=== PATIENT | male | born 2000 | race Caucasian/White ===

== ENCOUNTER 2023-06-02 15:48 | Emergency (ER) | payer MEDICAID, OTHER ==
[~2023-06-02] VITALS: Ht 182.9 cm; Wt 69.0 kg
[2023-06-02] MEDS ORDERED: KETOROLAC TROMETH 60MG/2ML VIAL IM ONE (16:00)
[2023-06-02] MEDS ORDERED: IBUP-1455 PO (16:43)
[2023-06-02] MEDS ORDERED: ACET500T58 PO (16:43)
[2023-06-02 16:51] VITALS: BP 107/67; PULSE 80; RESP 18; TEMP 98.7; O2SAT 100
== END 2023-06-02 16:52 | disposition home or self-care (01) ==
LOC: ER 15:48
DX: S16.1XXA Strain of muscle, fascia and tendon at neck level, initial encounter (principal); S29.012A Strain of muscle and tendon of back wall of thorax, initial encounter; M51.44 Schmorl's nodes, thoracic region; V69.49XA Driver of heavy transport vehicle injured in collision with other motor vehicles in traffic accident, initial encounter; Y93.89 Activity, other specified; Y92.488 Other paved roadways as the place of occurrence of the external cause; Y99.8 Other external cause status
CPT/HCPCS: 72040; 72070; 96372; 99284; J1885

== ENCOUNTER 2024-01-25 15:44 | Emergency (ER) | payer MEDICAID, OTHER ==
[~2024-01-25] VITALS: Ht 182.9 cm; Wt 63.0 kg
[~2024-01-25 15:44] MED LIST: ACET500T58 PO; IBUP-1455 PO
[2024-01-25 17:08] VITALS: BP 137/58; PULSE 100; RESP 18; O2SAT 99
[2024-01-25] MEDS: ACETAMINOPHEN 500 MG TAB PO ONE (17:28)
[2024-01-25] MEDS ORDERED: NAPR-746 PO (17:34)
[2024-01-25] MEDS ORDERED: AMOX500T86 PO (17:34)
[2024-01-25] MEDS: TETANUS-DIPTH-ACEL PERTUSSIS 0.5ML SYR Tdap IM ONE (17:59)
[2024-01-25 18:00] VITALS: TEMP 98.1
== END 2024-01-25 18:05 | disposition home or self-care (01) ==
LOC: ER 15:44
DX: S61.432A Puncture wound without foreign body of left hand, initial encounter (principal); S61.431A Puncture wound without foreign body of right hand, initial encounter; W54.0XXA Bitten by dog, initial encounter; Y93.89 Activity, other specified; Y92.89 Other specified places as the place of occurrence of the external cause; Y99.8 Other external cause status
CPT/HCPCS: 73130; 90471; 90715